=== PATIENT | male | born 1950 | race Caucasian/White ===

== ENCOUNTER 2018-06-06 13:48 | Outpatient (CLI) | payer OTHER ==
[~2018-06-06] VITALS: Ht 182.9 cm; Wt 90.7 kg
[2018-06-06] MEDS ORDERED: albuterol 2.5 MG/3 ML nebule NEB ONE (14:50)
== END 2018-06-06 23:59 | disposition home or self-care (01) ==
LOC: RT 13:48
PROVIDERS: ATTEND Orthopaedic Surgery
DX: C34.90 Malignant neoplasm of unspecified part of unspecified bronchus or lung (principal); R06.09 Other forms of dyspnea; Z79.899 Other long term (current) drug therapy
CPT/HCPCS: 94060; 94760